=== PATIENT | male | born 2000 | race Caucasian/White ===

== ENCOUNTER 2022-08-14 18:21 | Emergency (ER) | payer BC ==
[~2022-08-14] VITALS: Ht 185.4 cm; Wt 68.0 kg
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
[2022-08-14 18:50] VITALS: BP 143/72
--- NOTE | 2022-08-14 19:00 | NUR ---
XRAY PT TO XRAY VIA WHEELCHAIR WITH [facility] [employer] IN STABLE CONDITION
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
--- NOTE | 2022-08-14 19:10 | NUR ---
XRAY PT BACK FROM XRAY AT THIS TIME IN STABLE CONDITION.
--- NOTE | 2022-08-14 19:18 | DIREP ---
PROCEDURE:XRAY WRIST MIN 3VW-LT COMPARISON:None. INDICATIONS:injury FINDINGS: BONES:Normal. JOINTS:Normal. SOFT TISSUES:Normal. OTHER:No additional findings. CONCLUSION:Normal left wrist. Dictated by: Roosevelt Corea M.D. on 08/14/2022 at 07:16 PM
[2022-08-14 19:20] VITALS: BP 131/92
--- NOTE | 2022-08-14 19:24 | DIREP ---
PROCEDURE:XRAY HIP MIN 2VW-LT COMPARISON:None. INDICATIONS:injury FINDINGS: BONES:Normal. JOINTS:Normal. SOFT TISSUES:Normal. OTHER:No additional findings. CONCLUSION:Normal left hip. Dictated by: Roosevelt Corea M.D. on 08/14/2022 at 07:18 PM
[2022-08-14 19:50] VITALS: BP 130/64
== END 2022-08-14 19:53 | disposition home or self-care (01) ==
LOC: ER 18:21
DX: S69.92XA Unspecified injury of left wrist, hand and finger(s), initial encounter (principal); S79.912A Unspecified injury of left hip, initial encounter; W19.XXXA Unspecified fall, initial encounter; Y93.89 Activity, other specified; Y92.89 Other specified places as the place of occurrence of the external cause; Y99.8 Other external cause status
CPT/HCPCS: 73502; 99283; 73110-LT